=== PATIENT | male | born 1970 | race Caucasian/White ===

== ENCOUNTER 2019-12-30 11:26 | Emergency (ER) | payer OTHER ==
[2019-12-30] MEDS ORDERED: Lidocaine 1% 10 ML MDV INJECT ONE (12:21)
[2019-12-30] MEDS ORDERED: HYDROmorphone 1 MG/ML Syringe IM ONE (12:25)
--- NOTE | 2019-12-30 12:36 | EDM.PDOC ---
ED HPI GENERAL MEDICAL PROBLEM - General Chief Complaint: Laceration Stated Complaint: RIGHT HAND LAC,MULTIPLE FINGERS Time Seen by Provider: 12/30/19 12:20 Source of Information: Reports: Patient, RN Notes Reviewed History Limitations: Reports: No Limitations - History of Present Illness INITIAL COMMENTS - FREE TEXT/NARRATIVE: The patient is a 49-year-old male who presents to the ED for a right hand injury. The patient states that he was doing a demonstration at work, when he got his fingers entrapped in some type of machinery. This resulted in 3 separate lacerations to 3 different fingers. One is a 3 cm crescent shaped laceration to the right index finger, there is a 5 cm laceration to the right ring finger, over the DIP aspect on the medial lateral side that does appear to have some skin missing, and a 2 cm laceration to the right pinky finger. Patient is able to move his hand in all range of motion, but states it is painful to do so. Patient notes he is right-hand dominant and up-to-date on his tetanus vaccination. - Related Data Allergies Allergy/AdvReac Type Severity Reaction Status Date / Time No Known Allergies Allergy Verified 12/30/19 11:42 Home Meds: Home Meds Hydrocodone/Acetaminophen [Hydrocodon-Acetaminophen 5-325] 1 each PO Q6H #20 tablet 12/30/19 [Rx] cephALEXin [Cephalexin] 500 mg PO BID #14 capsule 12/30/19 [Rx] Past Medical History - Past Health History Medical/Surgical History: Denies Medical/Surgical History Social & Family History - Tobacco Use Smoking Status *Q: Never Smoker - Recreational Drug Use Recreational Drug Use: No ED ROS GENERAL - Review of Systems Review Of Systems: Comprehensive ROS is negative, except as noted in HPI. ED EXAM, SKIN/RASH Exam: See Below Exam Limited By: No Limitations General Appearance: Alert, WD/WN, No Apparent Distress Respiratory/Chest: No Respiratory Distress, Lungs Clear, Normal Breath Sounds, No Accessory Muscle Use, Chest Non-Tender Cardiovascular: Normal Peripheral Pulses, Regular Rate, Rhythm, No Murmur Peripheral Pulses: 3+: Radial (L), Radial (R) Extremities: Normal Range of Motion, Normal Capillary Refill Neurological: Alert, Oriented, Normal Cognition, No Motor/Sensory Deficits Psychiatric: Normal Affect, Normal Mood Skin: Warm, Dry, Normal Color, No Rash, Wound/Incision (wound #1: R index-3cm curvilinear lac to lateral DIP aspect. wound #2: R ring finger-5cm gaping wound to medial aspect of DIP. wound #3: R pinky- 2 cm linear lac) Location, Skin: Upper Extremity, Right ED SKIN PROCEDURES - Laceration/Wound Repair Right Distal Digit - 2nd (Index) Appearance: Superficial, Linear (curvilinear), Clean Distal NVT: Neuro & Vascular Intact, No Tendon Injury Anesthetic Type: Local Local Anesthetic Volume: 2cc Skin Prep: Chlorhexidine (Hibiciens), Saline Exploration/Debridement/Repair: Wound Explored, In a Bloodless Field, Explored to Base, No Foreign Material Found Closed with: Sutures Lac/Wound length In cm: 3 Suture Size: 4-0 # of Sutures: 3 Suture Type: Prolene, Interrupted, Simple Sterile Dressing Applied: Nurse Tetanus Status Addressed: Yes Complications: No Right Distal Digit - 4th (Ring) Appearance: Subcutaneous, Irregular, Clean Distal NVT: Neuro & Vascular Intact, No Tendon Injury Anesthetic Type: Local Local Anesthesia - Lidocaine (Xylocaine): 1% Plain Local Anesthetic Volume: 2cc Skin Prep: Chlorhexidine (Hibiciens), Saline Exploration/Debridement/Repair: Wound Explored, In a Bloodless Field, Explored to Base, No Foreign Material Found Closed with: Sutures Lac/Wound length In cm: 5 Suture Size: 4-0 # of Sutures: 3 Suture Type: Prolene, Interrupted, Simple Sterile Dressing Applied: Nurse Tetanus Status Addressed: Yes Complications: No Right Distal Digit - 5th (Baby) Appearance: Superficial, Clean Distal NVT: Neuro & Vascular Intact, No Tendon Injury Anesthetic Type: Local Local Anesthesia - Lidocaine (Xylocaine): 1% Plain Local Anesthetic Volume: 2cc Skin Prep: Chlorhexidine (Hibiciens), Saline Exploration/Debridement/Repair: Wound Explored, In a Bloodless Field, Explored to Base, No Foreign Material Found Closed with: Sutures Lac/Wound length In cm: 2 Suture Size: 4-0 # of Sutures: 3 Suture Type: Prolene, Interrupted, Simple Sterile Dressing Applied: Nurse Tetanus Status Addressed: Yes Complications: No - Splinting Left 4th Digit Splint Site: R 4th digit Pre-Procedure NV Status: Normal Post-Procedure NV Status: Normal Splint Material: Aluminum-Foam (cage type splint) Applied & Form Fitted By: Nurse Provider Post-Splint Application NV Check: NV Status Normal, Good Position Complications: No Left 5th Digit Splint Site: L 5th digit Pre-Procedure NV Status: Normal Post-Procedure NV Status: Normal Splint Material: Aluminum-Foam Applied & Form Fitted By: Nurse Provider Post-Splint Application NV Check: NV Status Normal, Good Position Complications: No Course - Vital Signs Last Recorded V/S: Last Vital Signs Temp 97.8 F 12/30/19 11:38 Pulse 78 12/30/19 11:38 Resp 16 12/30/19 11:38 BP 109/64 12/30/19 11:38 Pulse Ox 98 12/30/19 11:38 - Orders/Labs/Meds Orders: Active Orders 24 hr Category Date Time Status Hand Comp Min 3V Rt [CR] Stat Exams 12/30/19 12:45 Ordered Meds: Medications Discontinued Medications Generic Name Dose Route Start Last Admin Trade Name Freq PRN Reason Stop Dose Admin Hydromorphone HCl 1 mg 12/30/19 12:25 12/30/19 12:32 Dilaudid IM 12/30/19 12:26 1 mg ONETIME ONE Administration Lidocaine HCl 10 ml 12/30/19 12:21 12/30/19 12:32 Xylocaine 1% INJECT 12/30/19 12:22 10 ml ONETIME ONE Administration - Re-Assessments/Exams Free Text/Narrative Re-Assessment/Exam: 12/30/19 14:08 Patient presents to the ED for a crush type hand injury. The x-ray demonstrates a transverse fracture of the fourth distal middle phalange, near the DIP, and a questionable fracture of the fifth proximal middle phalange near the PIP. Patient's hand will be cleansed and tube gauze type dressings will be applied to all fingers involved, on each of the fingers, there were lacerations that were unable to be repaired by sutures, as there was quite a bit of skin/ subcutaneous tissue missing. Departure - Departure Time of Disposition: 14:14 Disposition: Home, Self-Care 01 Condition: Fair Clinical Impression: Hand injury Qualifiers: Encounter type: initial encounter Laterality: right Qualified Code(s): S69.91XA - Unspecified injury of right wrist, hand and finger(s), initial encounter Laceration of multiple sites of hand and fingers Qualifiers: Encounter type: initial encounter Laterality: right Qualified Code(s): S61.411A - Laceration without foreign body of right hand, initial encounter; S61.219A - Laceration without foreign body of unspecified finger without damage to nail, initial encounter Fx phalanges, hand-open Qualifiers: Encounter type: initial encounter Qualified Code(s): S62.609B - Fracture of unspecified phalanx of unspecified finger, initial encounter for open fracture - Discharge Information *PRESCRIPTION DRUG MONITORING PROGRAM REVIEWED*: Yes *COPY OF PRESCRIPTION DRUG MONITORING REPORT IN PATIENT ATIF: No Instructions: Sutured Wound Care, [id number] Referrals: PCP,None [Primary Care Provider] - Forms: ED Department Discharge, ED Return to Work/School Form Additional Instructions: You have been evaluated in the ED for your hand injury. Sutures will need to stay in for 10-14 days (01/08 - 01/12). You do have a few finger fractures as well as the laceration injuries. Your fingers have been immobilized with a tube gauze for today's purposes, you were given a few finger splints, to use when the swelling decreases. You will be shown how to apply these You may return to the ED or any clinic for removal. Please keep this area clean and dry, you may cleanse with regular soap and water. No vigorous scrubbing. You were given a prescription for antibiotics, as this is considered an open fracture due to the lacerations over broken bones. You were given a prescription for a strong pain medication, hydrocodone/acetaminophen 5/325mg , please take 1 tab every 6 hours as needed for pain not relieved by Tylenol or ibuprofen alone. Please note this medication does contain Tylenol in it, so do not take more than 4000 mg in a 24-hour time span. These medications can be addictive, so please take as few as possible to achieve adequate pain control. These meds can also be quite constipating, recommend that you increase your oral fluid intake and take a stool softener like MiraLAX while taking these medications. Do not drive while taking this medication. For work purposes, you may take 600 milligrams ibuprofen every 6 hours or 500 mg Tylenol every 6 hours. Recommend that you have this wound re-examined by another provider in roughly 48 -72 hours time. Please call [phone] to obtain an appointment with a family practice provider if you do not already have one. Otherwise, please call their office and arrange an appointment to do so. Highly recommend that you have a hand surgeon assess your injury in a few days time to make sure there is no need for any orthopedic surgery. [facility] [place]'s number is [phone]. The images done at today's visit were sent electronically to [facility]. Please return to ED if your symptoms change or worsen. Sepsis Event Note - Evaluation Sepsis Screening Result: No Definite Risk - Focused Exam Vital Signs: Vital Signs Temp Pulse Resp BP Pulse Ox 12/30/19 11:38 97.8 F 78 16 109/64 98 Date Exam was Performed: 12/30/19 Time Exam was Performed: 14:07 - My Orders Last 24 Hours: My Active Orders 12/30/19 12:45 Hand Comp Min 3V Rt [CR] Stat - Assessment/Plan Last 24 Hours: My Active Orders 12/30/19 12:45 Hand Comp Min 3V Rt [CR] Stat
--- NOTE | 2019-12-30 14:49 | CR ---
Right hand: 4 views of the right hand were obtained. Comparison: No previous hand study. Fracture is noted within the distal aspect of the middle phalanx of the 4th digit. Mild displacement is seen. Tuft fracture is noted within the distal 2nd finger. Fracture is noted within the base of the middle phalanx of the 5th digit with articular extension and mild displacement. No additional fracture or other abnormality is seen. Scattered areas of soft tissue swelling. Impression: 1. Fractures involving the 2nd, 4th and 5th digits as noted above. Diagnostic code #3 This report was dictated in MDT
== END 2019-12-30 14:45 | disposition home or self-care (01) ==
LOC: JD.ED 11:26
DX: S62.624B Displaced fracture of middle phalanx of right ring finger, initial encounter for open fracture (principal); S62.626B Displaced fracture of middle phalanx of right little finger, initial encounter for open fracture; S62.630B Displaced fracture of distal phalanx of right index finger, initial encounter for open fracture; W23.0XXA Caught, crushed, jammed, or pinched between moving objects, initial encounter; Y99.0 Civilian activity done for income or pay
CPT/HCPCS: 12004; 73130; 96372; 99283; J1170; J2001

== ENCOUNTER 2023-03-12 10:52 | Inpatient (IN) | payer BC ==
[2023-03-12] MEDS ORDERED: Sodium Chloride 0.9% 10 ML Syringe FLUSH PRN (11:22)
[2023-03-12] MEDS ORDERED: Iopamidol 755 Mg/ML 100 ML Bottle IVPUSH ONE (11:22)
[2023-03-12] MEDS ORDERED: Sodium Chloride 0.9% 100 ML IV SCH (11:30)
[2023-03-12 11:48] LABS: BASOPHILS ABSOLUTE AUTO 0.02 K/mm3 (0.01-0.08); BASOPHILS PERCENT AUTO 0.1 % (0.1-1.2); EOSINOPHILS ABSOLUTE AUTO 0.02 K/mm3 (0.04-0.54); EOSINOPHILS PERCENT AUTO 0.1 (0.8-7.0); HEMATOCRIT 37.7 % (40.1-51.0); IMMATURE GRAN ABSOLUTE AUTO 0.04 K/mm3 (0.00-0.10); IMMATURE GRAN PERCENT AUTO 0.2 % (<=1.0); LYMPHOCYTES ABSOLUTE AUTO 1.23 K/mm3 (1.32-3.57); LYMPHOCYTES PERCENT AUTO 7.6 % (21.8-53.1); MEAN CORPUSCULAR HEMOGLOBIN 28.9 pg (25.7-32.2); MEAN CORPUSCULAR HGB CONC 33.7 g/dl (32.2-35.5); MEAN CORPUSCULAR VOLUME 85.7 fl (79.0-92.2); MEAN PLATELET VOLUME 7.9 fl (9.4-12.3); MONOCYTES ABSOLUTE AUTO 1.63 K/mm3 (0.30-0.82); NEUTROPHILS ABSOLUTE AUTO 13.29 K/mm3 (1.78-5.38); PLATELET COUNT,PLT 304 K/mm3 (163-337); WHITE BLOOD CELL COUNT,WBC 16.23 K/mm3 (4.23-9.07)
[2023-03-12 11:50] LABS: HEMOGLOBIN 12.7 gm/dl (13.7-17.5)
[2023-03-12 12:16] LABS: INR 1.04; PROTHROMBIN TIME 11.1 SECONDS (9.7-12.0)
[2023-03-12 12:18] LABS: PTT,PARTIAL THROMBOPLSTIN TIME 24.9 SECONDS (21.7-31.4)
[2023-03-12 12:24] LABS: A/G RATIO 0.7 (1-2); ALANINE AMINOTRANSFERASE,ALT 136 U/L (16-63); ALBUMIN 3.1 g/dl (3.4-5.0); ALKALINE PHOSPHATASE 465 U/L (46-116); ANION GAP 13.9 (5-15); ASPARTATE AMNIOTRANSFERASE,AST 68 U/L (15-37); BILIRUBIN TOTAL 1.1 mg/dL (0.2-1.0); BLOOD UREA NITROGEN,BUN 13 mg/dL (7-18); BUN/CREATININE RATIO 16.3 (14-18); CALCIUM 9.2 mg/dL (8.5-10.1); CARBON DIOXIDE,CO2 24 mEq/L (21-32); CHLORIDE,CL 103 mEq/L (98-107); CREATININE 0.8 mg/dL (0.7-1.3); EST CRCL DRUG DOSING (CG) 124.84 mL/min; ESTIMATED GFR 108 mL/min (>60); GLUCOSE RANDOM 129 mg/dL (70-99); MAGNESIUM 2.1 mg/dL (1.8-2.4); POTASSIUM,K 3.9 mEq/L (3.5-5.1); PROTEIN TOTAL,TP 7.5 g/dl (6.4-8.2); SODIUM,NA 137 mEq/L (136-145)
[2023-03-12 12:29] LABS: D-DIMER QUANTITATIVE > 35.20 mg/L (0.19-0.50); TROPONIN I HIGH SENSITIVITY < 4 pg/mL (<=76)
[2023-03-12] MEDS ORDERED: Heparin Sodium 5,000 Units/ML Vial IVPUSH ONE ×3 (13:06→23:35)
[2023-03-12] MEDS ORDERED: Heparin Sodium/D5W 25,000 UNITS/500 ML BAG IV SCH (13:15)
[2023-03-12 13:28] LABS: SLIDE REVIEW ABNORMAL SMEAR
[2023-03-12] MEDS ORDERED: HYDROmorphone 0.5 MG/0.5 ML Syringe IVPUSH ONE (14:23)
[2023-03-12] MEDS ORDERED: Albuterol/Ipratropium 3.0-0.5 MG/3 ML Neb Soln NEB PRN (16:36)
[2023-03-12] MEDS ORDERED: Ondansetron 4 MG/2 ML SDV IV PRN (16:36)
[2023-03-12] MEDS ORDERED: Ondansetron 4 MG Tab.DIS PO PRN (16:36)
[2023-03-12] MEDS ORDERED: Polyethylene Glycol 3350 Powder 17 GM Packet PO PRN (16:36)
[2023-03-12] MEDS ORDERED: oxyCODONE 5 MG Tab PO PRN (16:36)
[2023-03-12] MEDS: Morphine 2 MG/ML SYRINGE IVPUSH PRN ×2 (17:13→23:12)
[2023-03-12] MEDS: Heparin Sodium/D5W 25,000 UNITS/500 ML BAG IV SCH (19:14)
[2023-03-12] MEDS: Acetaminophen 325 MG Tab PO PRN (20:49)
[2023-03-12] MEDS: Melatonin 3 MG Tab PO PRN (20:49)
[2023-03-13 02:08] LABS: BASOPHILS ABSOLUTE AUTO 0.03 K/mm3 (0.01-0.08); BASOPHILS PERCENT AUTO 0.2 % (0.1-1.2); EOSINOPHILS ABSOLUTE AUTO 0.01 K/mm3 (0.04-0.54); EOSINOPHILS PERCENT AUTO 0.1 (0.8-7.0); HEMATOCRIT 33.5 % (40.1-51.0); HEMOGLOBIN 11.3 gm/dl (13.7-17.5); IMMATURE GRAN ABSOLUTE AUTO 0.04 K/mm3 (0.00-0.10); IMMATURE GRAN PERCENT AUTO 0.2 % (<=1.0); LYMPHOCYTES ABSOLUTE AUTO 1.87 K/mm3 (1.32-3.57); LYMPHOCYTES PERCENT AUTO 11.5 % (21.8-53.1); MEAN CORPUSCULAR HGB CONC 33.7 g/dl (32.2-35.5); MEAN CORPUSCULAR VOLUME 86.1 fl (79.0-92.2); MEAN PLATELET VOLUME 7.9 fl (9.4-12.3); MONOCYTES ABSOLUTE AUTO 1.81 K/mm3 (0.30-0.82); MONOCYTES PERCENT AUTO 11.1 % (5.3-12.2); NEUTROPHILS ABSOLUTE AUTO 12.57 K/mm3 (1.78-5.38); NEUTROPHILS PERCENT AUTO 76.9 % (34.0-67.9); PLATELET COUNT,PLT 274 K/mm3 (163-337); RED BLOOD CELL COUNT 3.89 M/mm3 (4.63-6.08); WHITE BLOOD CELL COUNT,WBC 16.33 K/mm3 (4.23-9.07)
[2023-03-13] MEDS: Morphine 2 MG/ML SYRINGE IVPUSH PRN ×5 (02:08→13:17)
[2023-03-13 02:30] LABS: A/G RATIO 0.6 (1-2); ALBUMIN 2.6 g/dl (3.4-5.0); ANION GAP 10.9 (5-15); BILIRUBIN TOTAL 0.9 mg/dL (0.2-1.0); BUN/CREATININE RATIO 17.5 (14-18); CALCIUM 8.6 mg/dL (8.5-10.1); CREATININE 0.8 mg/dL (0.7-1.3); EST CRCL DRUG DOSING (CG) 124.84 mL/min; POTASSIUM,K 3.9 mEq/L (3.5-5.1); PROTEIN TOTAL,TP 6.8 g/dl (6.4-8.2)
[2023-03-13 03:45] LABS: SLIDE REVIEW ABNORMAL SMEAR
[2023-03-13] MEDS: oxyCODONE 5 MG Tab PO PRN ×3 (05:49→15:24)
[2023-03-13] MEDS ORDERED: Heparin Sodium 5,000 Units/ML Vial IV ONE (09:30)
[2023-03-13] MEDS ORDERED: Azithromycin 250 MG in Sodium Chloride 0.9% 250 ML IV SCH (10:00)
[2023-03-13] MEDS: cefTRIAXone 1 GM in Sodium Chloride 0.9% 100 ML IV SCH (10:43)
[2023-03-13] MEDS: Azithromycin 250 MG in Sodium Chloride 0.9% 250 ML IV SCH (12:57)
[2023-03-13] MEDS ORDERED: Calcium Carbonate 500 MG Tab.Chew PO ONE (15:00)
[2023-03-13] MEDS ORDERED: Heparin Sodium 5,000 Units/ML Vial IVPUSH ONE (17:15)
[2023-03-13] MEDS: Heparin Sodium/D5W 25,000 UNITS/500 ML BAG IV SCH (17:25)
[2023-03-13] MEDS: Acetaminophen 325 MG Tab PO PRN (20:37)
[2023-03-13] MEDS: Melatonin 3 MG Tab PO PRN (20:38)
[2023-03-14] MEDS: oxyCODONE 5 MG Tab PO PRN ×4 (00:27→18:27)
[2023-03-14 02:07] LABS: BASOPHILS ABSOLUTE AUTO 0.02 K/mm3 (0.01-0.08); BASOPHILS PERCENT AUTO 0.1 % (0.1-1.2); EOSINOPHILS ABSOLUTE AUTO 0.02 K/mm3 (0.04-0.54); EOSINOPHILS PERCENT AUTO 0.1 (0.8-7.0); HEMOGLOBIN 10.6 gm/dl (13.7-17.5); IMMATURE GRAN ABSOLUTE AUTO 0.04 K/mm3 (0.00-0.10); IMMATURE GRAN PERCENT AUTO 0.3 % (<=1.0); LYMPHOCYTES ABSOLUTE AUTO 1.58 K/mm3 (1.32-3.57); LYMPHOCYTES PERCENT AUTO 10.1 % (21.8-53.1); MEAN CORPUSCULAR HEMOGLOBIN 29.4 pg (25.7-32.2); MEAN CORPUSCULAR HGB CONC 34.2 g/dl (32.2-35.5); MEAN CORPUSCULAR VOLUME 85.9 fl (79.0-92.2); MEAN PLATELET VOLUME 7.9 fl (9.4-12.3); MONOCYTES ABSOLUTE AUTO 1.71 K/mm3 (0.30-0.82); MONOCYTES PERCENT AUTO 10.9 % (5.3-12.2); NEUTROPHILS ABSOLUTE AUTO 12.32 K/mm3 (1.78-5.38); NEUTROPHILS PERCENT AUTO 78.5 % (34.0-67.9); PLATELET COUNT,PLT 282 K/mm3 (163-337); RED BLOOD CELL COUNT 3.61 M/mm3 (4.63-6.08); WHITE BLOOD CELL COUNT,WBC 15.69 K/mm3 (4.23-9.07)
[2023-03-14 02:33] LABS: A/G RATIO 0.5 (1-2); ALBUMIN 2.2 g/dl (3.4-5.0); ANION GAP 9.5 (5-15); BILIRUBIN TOTAL 0.7 mg/dL (0.2-1.0); BUN/CREATININE RATIO 17.1 (14-18); CALCIUM 8.7 mg/dL (8.5-10.1); CREATININE 0.7 mg/dL (0.7-1.3); EST CRCL DRUG DOSING (CG) 142.68 mL/min; POTASSIUM,K 3.5 mEq/L (3.5-5.1); PROTEIN TOTAL,TP 6.6 g/dl (6.4-8.2)
[2023-03-14] MEDS: Morphine 2 MG/ML SYRINGE IVPUSH PRN ×5 (02:48→20:26)
[2023-03-14 03:11] LABS: SLIDE REVIEW ABNORMAL SMEAR
[2023-03-14] MEDS: Heparin Sodium/D5W 25,000 UNITS/500 ML BAG IV SCH (05:24)
[2023-03-14 05:30] LABS: APPEARANCE,URINE CLEAR (Clear); BILIRUBIN,URINE 1+ (Negative); COLOR,URINE YELLOW (Yellow); GLUCOSE,URINE NEGATIVE (Negative); KETONES,URINE NEGATIVE (Negative); LEUKOCYTE ESTERASE,URINE NEGATIVE (Negative); NITRITE,URINE NEGATIVE (Negative); OCCULT BLOOD,URINE NEGATIVE (Negative); PROTEIN,URINE 1+ (Negative); UROBILINOGEN,URINE 0.2 (0.2-1.0)
[2023-03-14 06:24] LABS: BACTERIA,URINE MODERATE /hpf (FEW); EPITHELIAL CELLS,URINE 0-5 /hpf (0-5); RBC,URINE 0-5 /hpf (0-5); RENAL EPITHELIAL CELLS,URINE 0-5 /hpf (0-5); WBC,URINE 0-5 /hpf (0-5)
[2023-03-14 06:25] LABS: MUCUS,URINE MANY /hpf (FEW)
[2023-03-14] MEDS: cefTRIAXone 1 GM in Sodium Chloride 0.9% 100 ML IV SCH (09:49)
[2023-03-14] MEDS ORDERED: Fluticasone NASAL Spray 16 GM Bottle NASBOTH PRN (10:10)
[2023-03-14] MEDS ORDERED: Methocarbamol 500 MG Tab PO PRN (10:10)
[2023-03-14] MEDS: Apixaban 5 MG Tab PO SCH ×2 (11:30→20:26)
[2023-03-14] MEDS: Azithromycin 250 MG in Sodium Chloride 0.9% 250 ML IV SCH (14:08)
[2023-03-14] MEDS: Furosemide 40 MG/4 ML VIAL IVPUSH SCH (18:29)
[2023-03-14] MEDS: Melatonin 3 MG Tab PO PRN (20:27)
[2023-03-15] MEDS: oxyCODONE 5 MG Tab PO PRN ×2 (00:02→05:01)
[2023-03-15] MEDS: Acetaminophen 325 MG Tab PO PRN ×3 (03:51→16:09)
[2023-03-15 06:42] LABS: BASOPHILS ABSOLUTE AUTO 0.02 K/mm3 (0.01-0.08); BASOPHILS PERCENT AUTO 0.2 % (0.1-1.2); EOSINOPHILS ABSOLUTE AUTO 0.04 K/mm3 (0.04-0.54); EOSINOPHILS PERCENT AUTO 0.3 (0.8-7.0); HEMATOCRIT 32.4 % (40.1-51.0); HEMOGLOBIN 10.7 gm/dl (13.7-17.5); IMMATURE GRAN ABSOLUTE AUTO 0.06 K/mm3 (0.00-0.10); IMMATURE GRAN PERCENT AUTO 0.5 % (<=1.0); LYMPHOCYTES ABSOLUTE AUTO 1.08 K/mm3 (1.32-3.57); LYMPHOCYTES PERCENT AUTO 8.4 % (21.8-53.1); MEAN CORPUSCULAR HEMOGLOBIN 28.5 pg (25.7-32.2); MEAN CORPUSCULAR VOLUME 86.4 fl (79.0-92.2); MONOCYTES ABSOLUTE AUTO 1.45 K/mm3 (0.30-0.82); MONOCYTES PERCENT AUTO 11.3 % (5.3-12.2); NEUTROPHILS ABSOLUTE AUTO 10.14 K/mm3 (1.78-5.38); NEUTROPHILS PERCENT AUTO 79.3 % (34.0-67.9); PLATELET COUNT,PLT 352 K/mm3 (163-337); RED BLOOD CELL COUNT 3.75 M/mm3 (4.63-6.08); WHITE BLOOD CELL COUNT,WBC 12.79 K/mm3 (4.23-9.07)
[2023-03-15 08:09] LABS: HEMATOCRIT 29.9 % (40.1-51.0); HEMOGLOBIN 9.8 gm/dl (13.7-17.5); MEAN CORPUSCULAR HEMOGLOBIN 28.4 pg (25.7-32.2); MEAN CORPUSCULAR HGB CONC 32.8 g/dl (32.2-35.5); MEAN CORPUSCULAR VOLUME 86.7 fl (79.0-92.2); MEAN PLATELET VOLUME 7.9 fl (9.4-12.3); PLATELET COUNT,PLT 371 K/mm3 (163-337); RED BLOOD CELL COUNT 3.45 M/mm3 (4.63-6.08); WHITE BLOOD CELL COUNT,WBC 13.96 K/mm3 (4.23-9.07)
[2023-03-15] MEDS: Furosemide 40 MG/4 ML VIAL IVPUSH SCH (08:37)
[2023-03-15] MEDS: Apixaban 5 MG Tab PO SCH ×2 (08:37→20:12)
[2023-03-15] MEDS: cefTRIAXone 1 GM in Sodium Chloride 0.9% 100 ML IV SCH (08:59)
[2023-03-15] MEDS ORDERED: Metoclopramide 5 MG Tab PO PRN (11:09)
[2023-03-15] MEDS ORDERED: Multivitamin Tab PO SCH (11:15)
[2023-03-15] MEDS: Ibuprofen 600 MG Tab PO PRN ×2 (13:06→20:12)
[2023-03-15] MEDS: Multivitamin Tab PO SCH (13:06)
[2023-03-15] MEDS: Azithromycin 250 MG in Sodium Chloride 0.9% 250 ML IV SCH (13:06)
[2023-03-15] MEDS ORDERED: Furosemide 40 MG/4 ML VIAL IVPUSH ONE (14:00)
[2023-03-15] MEDS: Melatonin 3 MG Tab PO PRN (20:12)
[2023-03-15] MEDS: Docusate Sodium 100 MG Cap PO SCH (20:12)
[2023-03-16] MEDS: Acetaminophen 325 MG Tab PO PRN ×2 (01:34→06:17)
[2023-03-16 06:36] LABS: ANION GAP 13.3 (5-15); BUN/CREATININE RATIO 23.8 (14-18); CALCIUM 9.1 mg/dL (8.5-10.1); CREATININE 0.8 mg/dL (0.7-1.3); EST CRCL DRUG DOSING (CG) 124.84 mL/min; POTASSIUM,K 3.3 mEq/L (3.5-5.1)
[2023-03-16] MEDS: Ibuprofen 600 MG Tab PO PRN (08:44)
[2023-03-16] MEDS: Docusate Sodium 100 MG Cap PO SCH (08:44)
[2023-03-16] MEDS: Furosemide 40 MG/4 ML VIAL IVPUSH SCH (08:45)
[2023-03-16] MEDS: Multivitamin Tab PO SCH (08:45)
[2023-03-16] MEDS: Apixaban 5 MG Tab PO SCH (08:45)
[2023-03-16] MEDS ORDERED: Potassium Chloride 20 MEQ Tab.ER PO ONE (10:15)
[2023-03-16] MEDS: cefTRIAXone 1 GM in Sodium Chloride 0.9% 100 ML IV SCH (11:06)
[2023-03-16] MEDS ORDERED: oxyCODONE 5 MG Tab PO PRN (14:15)
[2023-03-16] MEDS: Azithromycin 250 MG in Sodium Chloride 0.9% 250 ML IV SCH (15:25)
== END 2023-03-16 15:20 | disposition home or self-care (01) | DRG 134 ==
LOC: JD.ED 10:52 → JD.MS 15:42
PROVIDERS: ADMIT Hospitalist; ATTEND Hospitalist
DX: I26.99 Other pulmonary embolism without acute cor pulmonale (principal); J18.9 Pneumonia, unspecified organism; D72.828 Other elevated white blood cell count; C78.7 Secondary malignant neoplasm of liver and intrahepatic bile duct; C79.51 Secondary malignant neoplasm of bone; C80.1 Malignant (primary) neoplasm, unspecified; Z79.01 Long term (current) use of anticoagulants; Z79.899 Other long term (current) drug therapy
CPT/HCPCS: 36415; 71101-26-RT; 71101-RT; 71275; 71275-26; 76705; 76705-26; 80048; 80053; 81001; 83735; 83880; 84484; 85025; 85027; 85379; 85610; 85730; 93005; 93010; 93970; 93970-26; 94667; 94668; 94762; 96365; 96366; 96367; 96368; 96375; 99285; 99285-25; A9270-GY; J0456; J0696; J1170; J1644; J1940; J2270; J3490; J7050; Q9967

== ENCOUNTER 2023-04-29 09:09 | Emergency (ER) | payer BC ==
[2023-04-29] MEDS ORDERED: Sodium Chloride 0.9% 10 ML Syringe FLUSH PRN (09:51)
[2023-04-29] MEDS ORDERED: HYDROmorphone 1 MG/ML Syringe IVPUSH ONE (09:52)
[2023-04-29] MEDS ORDERED: HYDROmorphone 0.5 MG/0.5 ML Syringe IVPUSH ONE (10:49)
== END 2023-04-29 11:50 | disposition home or self-care (01) ==
LOC: JD.ED 09:09
DX: M54.6 Pain in thoracic spine (principal)
CPT/HCPCS: 96374; 96376; 99283; J1170; J3490; 99284

== ENCOUNTER 2024-07-23 11:18 | Inpatient (IN) | payer BC ==
[2024-07-23 12:09] LABS: BASOPHILS ABSOLUTE AUTO 0.1 K/mm3 (0.0-0.2); BASOPHILS PERCENT AUTO 0.4 % (0.0-1.0); EOSINOPHILS ABSOLUTE AUTO 0.2 K/mm3 (0.0-0.4); HEMATOCRIT 36.3 % (42.0-52.0); HEMOGLOBIN 11.7 gm/dl (14.0-18.0); IMMATURE GRAN ABSOLUTE AUTO 0.24 K/mm3 (0.00-0.05); IMMATURE GRAN PERCENT AUTO 1.5 % (0.0-0.4); LYMPHOCYTES ABSOLUTE AUTO 0.3 K/mm3 (1.0-4.8); LYMPHOCYTES PERCENT AUTO 1.9 % (24.0-44.0); MEAN CORPUSCULAR HEMOGLOBIN 34.7 pg (28.0-32.0); MEAN CORPUSCULAR HGB CONC 32.2 g/dl (32.0-36.0); MEAN CORPUSCULAR VOLUME 107.7 fl (83.0-99.0); MEAN PLATELET VOLUME 9.4 fl (9.4-12.4); MONOCYTES ABSOLUTE AUTO 0.6 K/mm3 (0.0-0.8); MONOCYTES PERCENT AUTO 4.1 % (0.0-8.0); NEUTROPHILS ABSOLUTE AUTO 14.2 K/mm3 (1.8-7.7); NEUTROPHILS PERCENT AUTO 91.1 % (41.0-71.0); PLATELET COUNT,PLT 94 K/mm3 (150-400); RED BLOOD CELL COUNT 3.37 M/mm3 (4.52-5.90); WHITE BLOOD CELL COUNT,WBC 15.61 K/mm3 (3.9-11.3)
[2024-07-23] MEDS: Lactated Ringers 1,000 ML IV SCH (12:27)
[2024-07-23] MEDS: Sodium Chloride 0.9% 10 ML Syringe FLUSH PRN (12:27)
[2024-07-23 12:46] LABS: A/G RATIO 0.8 (1-2); ALANINE AMINOTRANSFERASE,ALT 24 U/L (16-63); ALBUMIN 2.7 g/dl (3.4-5.0); ALKALINE PHOSPHATASE 548 U/L (46-116); ANION GAP 9.9 (5-15); ASPARTATE AMNIOTRANSFERASE,AST 29 U/L (15-37); BILIRUBIN TOTAL 0.6 mg/dL (0.2-1.0); BLOOD UREA NITROGEN,BUN 7 mg/dL (7-18); BUN/CREATININE RATIO 11.7 (14-18); C-REACTIVE PROTEIN 4.68 mg/dL (<0.30); CALCIUM 8.6 mg/dL (8.5-10.1); CARBON DIOXIDE,CO2 31 mEq/L (21-32); CHLORIDE,CL 102 mEq/L (98-107); CREATININE 0.6 mg/dL (0.7-1.3); EST CRCL DRUG DOSING (CG) 128.49 mL/min; ESTIMATED GFR 117 mL/min (>60); GLUCOSE RANDOM 122 mg/dL (70-99); POTASSIUM,K 3.9 mEq/L (3.5-5.1); PROTEIN TOTAL,TP 6.3 g/dl (6.4-8.2); SODIUM,NA 139 mEq/L (136-145); TROPONIN I HIGH SENSITIVITY < 4 pg/mL (<=76)
[2024-07-23 12:48] LABS: LACTIC ACID 1.1 mmol/L (0.4-2.0)
[2024-07-23 12:49] LABS: SLIDE REVIEW ABNORMAL SMEAR
[2024-07-23] MEDS: Iopamidol 755 Mg/ML 100 ML Bottle IVPUSH ONE (13:45)
[2024-07-23] MEDS: Sodium Chloride 0.9% 10 ML Syringe FLUSH ONE (13:45)
[2024-07-23] MEDS: Sodium Chloride 0.9% 100 ML IV SCH (13:45)
[2024-07-23] MEDS: Piperacillin/Tazobactam 4.5 GM in Sodium Chloride 0.9% 100 ML IV ONE (15:31)
[2024-07-23] MEDS ORDERED: Polyethylene Glycol 3350 Powder 17 GM Packet PO PRN (16:39)
[2024-07-23 17:31] LABS: TSH 3.59 uIU/mL (0.358-3.74)
[2024-07-23 18:28] LABS: APPEARANCE,URINE CLEAR (Clear); BILIRUBIN,URINE NEGATIVE (Negative); COLOR,URINE YELLOW (Yellow); GLUCOSE,URINE NEGATIVE (Negative); KETONES,URINE NEGATIVE (Negative); LEUKOCYTE ESTERASE,URINE NEGATIVE (Negative); NITRITE,URINE NEGATIVE (Negative); OCCULT BLOOD,URINE NEGATIVE (Negative); PH,URINE 8.5 (5.0-8.0); PROTEIN,URINE TRACE (Negative); UROBILINOGEN,URINE 0.2 (0.2-1.0)
[2024-07-23 19:11] LABS: BACTERIA,URINE RARE /hpf (FEW); EPITHELIAL CELLS,URINE 0-5 /hpf (0-5); RBC,URINE 0-5 /hpf (0-5); WBC,URINE 0-5 /hpf (0-5)
[2024-07-23 19:12] LABS: MUCUS,URINE NOT SEEN /hpf (FEW)
[2024-07-23] MEDS: Morphine 15 MG Tab.ER PO SCH (20:30)
[2024-07-23] MEDS: Enoxaparin 60 MG/0.6 ML Syringe SUBCUT SCH (20:31)
[2024-07-23] MEDS: Piperacillin/Tazobactam 4.5 GM in Sodium Chloride 0.9% 100 ML IV SCH (23:51)
[2024-07-24 05:33] LABS: A/G RATIO 0.8 (1-2); ALBUMIN 2.4 g/dl (3.4-5.0); ANION GAP 10.6 (5-15); BILIRUBIN TOTAL 0.5 mg/dL (0.2-1.0); BUN/CREATININE RATIO 11.7 (14-18); C-REACTIVE PROTEIN 3.94 mg/dL (<0.30); CALCIUM 8.1 mg/dL (8.5-10.1); CREATININE 0.6 mg/dL (0.7-1.3); EST CRCL DRUG DOSING (CG) 129.89 mL/min; POTASSIUM,K 3.6 mEq/L (3.5-5.1); PROTEIN TOTAL,TP 5.5 g/dl (6.4-8.2)
[2024-07-24 05:35] LABS: BASOPHILS ABSOLUTE AUTO 0.1 K/mm3 (0.0-0.2); BASOPHILS PERCENT AUTO 0.7 % (0.0-1.0); EOSINOPHILS ABSOLUTE AUTO 0.3 K/mm3 (0.0-0.4); EOSINOPHILS PERCENT AUTO 1.7 % (0.0-6.0); HEMATOCRIT 31.6 % (42.0-52.0); IMMATURE GRAN ABSOLUTE AUTO 0.18 K/mm3 (0.00-0.05); IMMATURE GRAN PERCENT AUTO 1.2 % (0.0-0.4); LYMPHOCYTES ABSOLUTE AUTO 0.3 K/mm3 (1.0-4.8); LYMPHOCYTES PERCENT AUTO 2.2 % (24.0-44.0); MEAN CORPUSCULAR HEMOGLOBIN 34.1 pg (28.0-32.0); MEAN CORPUSCULAR HGB CONC 32.3 g/dl (32.0-36.0); MEAN CORPUSCULAR VOLUME 105.7 fl (83.0-99.0); MEAN PLATELET VOLUME 9.6 fl (9.4-12.4); MONOCYTES ABSOLUTE AUTO 0.6 K/mm3 (0.0-0.8); NEUTROPHILS ABSOLUTE AUTO 13.7 K/mm3 (1.8-7.7); NEUTROPHILS PERCENT AUTO 90.2 % (41.0-71.0); PLATELET COUNT,PLT 90 K/mm3 (150-400); RED BLOOD CELL COUNT 2.99 M/mm3 (4.52-5.90); WHITE BLOOD CELL COUNT,WBC 15.12 K/mm3 (3.9-11.3)
[2024-07-24 05:48] LABS: HEMOGLOBIN 10.2 gm/dl (14.0-18.0)
[2024-07-24] MEDS: Levothyroxine 100 MCG Tab PO SCH (06:09)
[2024-07-24 06:40] LABS: SLIDE REVIEW ABNORMAL SMEAR
[2024-07-24] MEDS ORDERED: Levothyroxine 100 MCG Tab PO SCH (09:00)
[2024-07-24] MEDS: Acetaminophen 325 MG Tab PO PRN (14:32)
[2024-07-24] MEDS: Ondansetron 4 MG Tab.DIS PO PRN (17:24)
[2024-07-25] MEDS: Sodium Chloride 0.9% 100 ML ONE (00:22)
[2024-07-25] MEDS: Ondansetron 4 MG Tab.DIS PO PRN (01:21)
[2024-07-25 05:29] LABS: A/G RATIO 0.7 (1-2); ALBUMIN 2.4 g/dl (3.4-5.0); ANION GAP 10.8 (5-15); BILIRUBIN TOTAL 0.6 mg/dL (0.2-1.0); C-REACTIVE PROTEIN 2.59 mg/dL (<0.30); CALCIUM 8.3 mg/dL (8.5-10.1); CREATININE 0.5 mg/dL (0.7-1.3); EST CRCL DRUG DOSING (CG) 155.87 mL/min; POTASSIUM,K 3.8 mEq/L (3.5-5.1); PROTEIN TOTAL,TP 5.7 g/dl (6.4-8.2)
[2024-07-25 05:53] LABS: BASOPHILS ABSOLUTE AUTO 0.1 K/mm3 (0.0-0.2); BASOPHILS PERCENT AUTO 0.4 % (0.0-1.0); EOSINOPHILS ABSOLUTE AUTO 0.2 K/mm3 (0.0-0.4); EOSINOPHILS PERCENT AUTO 0.9 % (0.0-6.0); HEMOGLOBIN 10.4 gm/dl (14.0-18.0); IMMATURE GRAN ABSOLUTE AUTO 0.17 K/mm3 (0.00-0.05); LYMPHOCYTES ABSOLUTE AUTO 0.4 K/mm3 (1.0-4.8); LYMPHOCYTES PERCENT AUTO 2.1 % (24.0-44.0); MEAN CORPUSCULAR HEMOGLOBIN 34.7 pg (28.0-32.0); MEAN CORPUSCULAR HGB CONC 32.5 g/dl (32.0-36.0); MEAN CORPUSCULAR VOLUME 106.7 fl (83.0-99.0); MEAN PLATELET VOLUME 9.3 fl (9.4-12.4); MONOCYTES ABSOLUTE AUTO 0.5 K/mm3 (0.0-0.8); MONOCYTES PERCENT AUTO 2.9 % (0.0-8.0); NEUTROPHILS ABSOLUTE AUTO 15.9 K/mm3 (1.8-7.7); NEUTROPHILS PERCENT AUTO 92.7 % (41.0-71.0); PLATELET COUNT,PLT 93 K/mm3 (150-400); WHITE BLOOD CELL COUNT,WBC 17.18 K/mm3 (3.9-11.3)
[2024-07-25 06:42] LABS: SLIDE REVIEW ABNORMAL SMEAR
== END 2024-07-25 11:32 | disposition home or self-care (01) | DRG 720 ==
LOC: JD.ED 11:18 → JD.MS 16:40
PROVIDERS: ADMIT Family Medicine; ATTEND Family Medicine
DX: A41.9 Sepsis, unspecified organism (principal); J96.01 Acute respiratory failure with hypoxia; J18.9 Pneumonia, unspecified organism; R65.20 Severe sepsis without septic shock; I82.512 Chronic embolism and thrombosis of left femoral vein; C34.90 Malignant neoplasm of unspecified part of unspecified bronchus or lung; C77.9 Secondary and unspecified malignant neoplasm of lymph node, unspecified; C79.51 Secondary malignant neoplasm of bone; C78.7 Secondary malignant neoplasm of liver and intrahepatic bile duct; E78.00 Pure hypercholesterolemia, unspecified; K59.09 Other constipation; Z86.711 Personal history of pulmonary embolism; Z79.01 Long term (current) use of anticoagulants; Z79.899 Other long term (current) drug therapy; Z79.51 Long term (current) use of inhaled steroids; Z79.891 Long term (current) use of opiate analgesic
CPT/HCPCS: 36415; 71045; 71045-26; 71275; 71275-26; 80053; 81001; 83605; 83880; 84443; 84484; 85025; 85379; 86140; 87040; 93005; 93010; 94760; 94761; 96361; 96365; 99285; 99285-25; A9270-GY; J1650; J2543; J3490; J7120; Q9967; U0002

== ENCOUNTER 2024-10-04 13:04 | Emergency (ER) | payer BC | END 2024-10-04 16:26 | disposition home or self-care (01) | LOC: JD.ED 13:04 | DX: I82.412 Acute embolism and thrombosis of left femoral vein (principal); Z79.51 Long term (current) use of inhaled steroids; Z79.890 Hormone replacement therapy; Z79.899 Other long term (current) drug therapy | CPT/HCPCS: 93970; 93970-26; 99284 ==